=== PATIENT | female | born 2005 | race Caucasian/White ===

== ENCOUNTER 2025-01-18 17:28 | Emergency (ER) | payer BC, MEDICAID ==
[2025-01-18] MEDS: Cyclobenzaprine 10 MG Tab PO ONE (18:35)
[2025-01-18] MEDS: Ketorolac 30 MG/ML SDV IM ONE (18:36)
== END 2025-01-18 19:41 | disposition home or self-care (01) ==
LOC: JP.ED 17:28
DX: M54.50 Low back pain, unspecified (principal); Z88.0 Allergy status to penicillin
CPT/HCPCS: 96372; 99283; A9270-GY; J1885